=== PATIENT | male | born 1965 | race Caucasian/White ===

== ENCOUNTER 2023-08-27 10:38 | Emergency (ER) | payer BC, OTHER ==
[2023-08-27] MEDS ORDERED: Lidocaine 1% (PF) 30 ML VIAL ONE (11:14)
== END 2023-08-27 12:20 | disposition home or self-care (01) ==
LOC: CSHERS 10:38
DX: S63.253A Unspecified dislocation of left middle finger, initial encounter (principal); X50.0XXA Overexertion from strenuous movement or load, initial encounter
CPT/HCPCS: 64450; J2001